=== PATIENT | female | born 1950 | race Caucasian/White ===

== ENCOUNTER 2016-10-22 08:49 | Outpatient (CLI) | payer MEDICARE ==
[2016-10-22 13:35] LABS: #Basophils 0.1 thou/uL (0.0-0.2); #Eosinphils 0.3 thou/uL (0.0-0.7); #Lymphocytes 1.8 thou/uL (1.20-3.40); #Monocytes 0.4 thou/uL (0.11-0.59); #Neutrophils 5.5 thou/uL (1.40-6.50); %Basophils 1.1 % (0.0-1.0); %Eosinophils 3.4 % (0.0-10.0); %Lymphocytes 22.5 % (21.0-51.0); %Monocytes 4.4 % (0.0-10.0); %Neutrophils 68.6 % (42.0-75.0); Hemoglobin 13.7 g/dL (12.0-16.0); Mean Corpuscular HGB CONC 32.3 g/dL (32.0-36.0); Mean Corpuscular Hemoglobin 32.9 pg (27.0-31.0); Mean Platelet Volume 6.1 fL (7.4-10.4); Platelet Count 298 thou/uL (130-400); RBC Distribution Width 13.2 % (11.5-14.5); Red Blood Cell (RBC) Count 4.18 mill/uL (4.20-5.40); White Blood Cell (WBC) Count 7.9 thou/uL (4.8-10.8)
[2016-10-22 13:41] LABS: ALT (SGPT) 17 U/L (0-55); AST (SGOT) 22 U/L (5-34); Albumin 4.2 g/dL (3.4-4.8); Alkaline Phosphatase 68 U/L (40-150); Anion Gap 16 mmol/L (10-20); BUN (Urea Nitrogen) 28 mg/dL (9.8-20.1); Bilirubin, Direct 0.2 mg/dL (0.1-0.3); Bilirubin, Total 0.6 mg/dL (0.2-1.2); Calc. Creatinine Clearance 0 mL/min (70-130); Calcium 9.2 mg/dL (7.8-10.44); Carbon Dioxide 25 mmol/L (23-31); Chloride 106 mmol/L (98-107); Cholesterol 219 mg/dL (< 200 Desired); Estimated GFR-MDRD 46; Glucose 73 mg/dL (80-115); HDL Cholesterol 55 mg/dL (>60 Neg Risk); LDL Cholesterol, Calculated 141 mg/dL; Potassium 4.7 mmol/L (3.5-5.1); Protein, Total 6.7 g/dL (5.8-8.1); Sodium 142 mmol/L (136-145); Triglycerides 113 mg/dL (Less than 150)
[2016-10-22 13:52] LABS: Hemoglobin A1c 5.2 % (4.0-6.0)
== END 2016-10-22 08:50 | disposition home or self-care (01) ==
LOC: NAVSJIPCSP 08:49
PROVIDERS: ATTEND Nurse Practitioner Family
DX: N95.1 Menopausal and female climacteric states (principal); K21.9 Gastro-esophageal reflux disease without esophagitis; I10 Essential (primary) hypertension; M19.90 Unspecified osteoarthritis, unspecified site; Z79.899 Other long term (current) drug therapy
CPT/HCPCS: 36415; 80048; 80061; 80076; 83036; 84443; 85025

== ENCOUNTER 2017-03-14 09:04 | Outpatient (CLI) | payer MEDICARE ==
[2017-03-14 12:01] LABS: #Basophils 0.1 thou/uL (0.0-0.2); #Eosinphils 0.3 thou/uL (0.0-0.7); #Lymphocytes 1.6 thou/uL (1.20-3.40); #Monocytes 0.4 thou/uL (0.11-0.59); #Neutrophils 5.1 thou/uL (1.40-6.50); %Basophils 1.5 % (0.0-1.0); %Eosinophils 4.4 % (0.0-10.0); %Lymphocytes 20.9 % (21.0-51.0); %Monocytes 5.2 % (0.0-10.0); %Neutrophils 68.1 % (42.0-75.0); Hemoglobin 14.1 g/dL (12.0-16.0); Mean Corpuscular HGB CONC 31.3 g/dL (32.0-36.0); Mean Corpuscular Hemoglobin 31.1 pg (27.0-31.0); Mean Corpuscular Volume 99.1 fl (81.0-99.0); Mean Platelet Volume 6.4 fL (7.4-10.4); Platelet Count 281 thou/uL (130-400); RBC Distribution Width 12.1 % (11.5-14.5); Red Blood Cell (RBC) Count 4.54 mill/uL (4.20-5.40); White Blood Cell (WBC) Count 7.5 thou/uL (4.8-10.8)
[2017-03-14 12:08] LABS: ALT (SGPT) 17 U/L (8-55); AST (SGOT) 23 U/L (5-34); Albumin 4.2 g/dL (3.4-4.8); Alkaline Phosphatase 71 U/L (40-150); Anion Gap 17 mmol/L (10-20); BUN (Urea Nitrogen) 33 mg/dL (9.8-20.1); Bilirubin, Direct 0.2 mg/dL (0.1-0.3); Bilirubin, Total 0.5 mg/dL (0.2-1.2); Calc. Creatinine Clearance 0 mL/min (70-130); Calcium 9.7 mg/dL (7.8-10.44); Carbon Dioxide 24 mmol/L (23-31); Cardiac Risk 4.3 (Less than 4.5); Chloride 106 mmol/L (98-107); Cholesterol 207 mg/dl (< 200 Desired); Estimated GFR-MDRD 44; Glucose 68 mg/dL (80-115); HDL Cholesterol 48 mg/dL (>60 Neg Risk); LDL Cholesterol, Calculated 133 mg/dL; Potassium 4.6 mmol/L (3.5-5.1); Protein, Total 6.8 g/dL (6.0-8.3); Sodium 142 mmol/L (136-145); Triglycerides 130 mg/dL (Less than 150)
== END 2017-03-14 09:05 | disposition home or self-care (01) ==
LOC: NAVSJIPCSP 09:04
PROVIDERS: ATTEND Family Medicine
DX: Z51.81 Encounter for therapeutic drug level monitoring (principal); Z79.899 Other long term (current) drug therapy
CPT/HCPCS: 36415; 80048; 80061; 80076; 84443; 85025

== ENCOUNTER 2018-08-11 23:56 | Emergency (ER) | payer MEDICARE ==
[2018-08-12] MEDS ORDERED: Ondansetron PF 4 MG/2 ML Vial ONE (00:27)
[2018-08-12] MEDS ORDERED: Morphine 4 MG/ML VIAL ONE (00:27)
[2018-08-12 00:31] LABS: #Basophils 0.1 thou/uL (0.0-0.2); #Eosinphils 0.1 thou/uL (0.0-0.7); #Lymphocytes 1.3 thou/uL (1.20-3.40); #Monocytes 0.5 thou/uL (0.11-0.59); #Neutrophils 9.7 thou/uL (1.40-6.50); %Basophils 0.8 % (0.0-1.0); %Eosinophils 0.7 % (0.0-10.0); %Lymphocytes 11.1 % (21.0-51.0); %Monocytes 4.2 % (0.0-10.0); %Neutrophils 83.3 % (42.0-75.0); Mean Corpuscular HGB CONC 32.2 g/dL (32.0-36.0); Mean Corpuscular Hemoglobin 32.4 pg (27.0-31.0); Mean Platelet Volume 6.3 fL (7.4-10.4); Platelet Count 243 thou/uL (130-400); RBC Distribution Width 11.7 % (11.5-14.5); White Blood Cell (WBC) Count 11.6 thou/uL (4.8-10.8)
[2018-08-12 00:42] LABS: Bilirubin Negative (Negative); Blood, Urine Large (Negative); Clarity Slightly Cloudy (Clear); Glucose, Urine (Dipstick) Negative (Negative); Leukocyte Trace (Negative); Nitrite Negative (Negative); Protein, Urine (Dipstick) 30 mg/dL (Neg-Trace); Urobilinogen 0.2 mg/dL (0.2-1.0)
[2018-08-12 00:43] LABS: Specific Gravity, Urine 1.028 (1.002-1.036)
[2018-08-12 00:44] LABS: RBC/HPF GREATER THAN 50-TNTC HPF (0-3)
[2018-08-12 00:44] LABS: ALT (SGPT) 11 U/L (8-55); AST (SGOT) 18 U/L (5-34); Albumin 4.1 g/dL (3.4-4.8); Alkaline Phosphatase 52 U/L (40-150); Anion Gap 15 mmol/L (10-20); BUN (Urea Nitrogen) 24 mg/dL (9.8-20.1); Bilirubin, Total 0.3 mg/dL (0.2-1.2); Calc. Creatinine Clearance 0 mL/min (70-130); Calcium 9.7 mg/dL (7.8-10.44); Carbon Dioxide 24 mmol/L (23-31); Chloride 107 mmol/L (98-107); Estimated GFR-MDRD 53; Globulin 2.5 g/dL (2.4-3.5); Glucose 124 mg/dL (80-115); Lipase 52 U/L (8-78); Potassium 4.3 mmol/L (3.5-5.1); Protein, Total 6.6 g/dL (6.0-8.3); Sodium 142 mmol/L (136-145)
[2018-08-12 00:45] LABS: Bacteria/HPF Rare-Few HPF (None Seen); Squamous Epithelial 0-3 HPF (0-3); WBC/HPF 0-3 HPF (0-3)
[2018-08-12] MEDS ORDERED: Sodium Chloride 0.9% 1,000 ML ONE (00:55)
[2018-08-12] MEDS ORDERED: Ketorolac Tromethamine 30 MG/ML VIAL ONE (00:55)
[2018-08-12] MEDS ORDERED: Tamsulosin HCl 0.4 MG CAP ONE (01:29)
--- NOTE | 2018-08-12 08:00 | CT ---
CT ABDOMEN AND PELVIS NONCONTRAST: INDICATIONS: Left abdominal pain. FINDINGS: Several calcifications are seen within the pelvis, one of which indicates a distal left ureteral calc ulus between 4 and 5 mm, with mild associated obstructive uropathy. No nephrolithiasis is seen. The re is limited evaluation of the solid abdominal organs, bowel, lymph nodes, and vasculature, on the b asis of the noncontrast technique. No acute abnormality of the visualized lung bases. Scattered oss eous degenerative change present. Scattered sclerotic foci are present, which may relate to bone isl ands. IMPRESSION: 1. A 4 to 5 mm distal left ureteral calculus with mild left obstructive uropathy. 2. Numerous additional calcifications of the pelvis are present, compatible with phleboliths. POS: NWK
== END 2018-08-12 01:50 | disposition home or self-care (01) ==
LOC: NAV ERS 23:56
DX: N13.2 Hydronephrosis with renal and ureteral calculous obstruction (principal); I10 Essential (primary) hypertension
CPT/HCPCS: 74176; 80053; 81003; 81015; 83605; 83690; 85025; 93005; 96361; 96374; 96375; J1885; J2270; J2405; J7050

== ENCOUNTER 2018-10-14 11:07 | Outpatient (CLI) | payer MEDICARE ==
--- NOTE | 2018-10-14 12:14 | RAD ---
THREE VIEWS LEFT WRIST: HISTORY: Left wrist pain. FINDINGS: Three views of the left wrist show no evidence of acute fracture or dislocation. There is a plate an d screws in the distal radius from prior fracture repair. No perihardware lucency is seen. IMPRESSION: No evidence of acute osseous abnormality. POS: [facility]LET
== END 2018-10-14 11:08 | disposition home or self-care (01) ==
LOC: NAV RAD 11:07
PROVIDERS: ATTEND Family Medicine
DX: S69.92XA Unspecified injury of left wrist, hand and finger(s), initial encounter (principal)

== ENCOUNTER 2019-08-17 10:04 | Outpatient (CLI) | payer MEDICARE ==
--- NOTE | 2019-08-17 12:15 | RAD ---
KUB: Date: 08/17/2019 INDICATION: Constipation, weight loss, and upset stomach. COMPARISON: Prior CT abdomen and pelvis dated 08/12/2018. FINDINGS: The lung bases are clear. The bowel gas pattern is unobstructed. There are numerous small phleboliths within the lower pelvis. No suspicious calcification is evident. There is scattered degenerative and osteoarthritic change. There is mild levoscoliosis of the lumbar spine. Small bone islands within th e upper sacrum are stable to the comparison CT evaluation. IMPRESSION: No acute abnormality. POS: CET
== END 2019-08-17 10:05 | disposition home or self-care (01) ==
LOC: NAV RAD 10:04
PROVIDERS: ATTEND Internal Medicine
DX: K30 Functional dyspepsia (principal); K59.00 Constipation, unspecified; R63.4 Abnormal weight loss
CPT/HCPCS: 74018

== ENCOUNTER 2022-06-24 20:34 | Emergency (ER) | payer MEDICARE, SELFPAY ==
[~2022-06-24 20:34] MED LIST: Iopamidol 370 76% 100 ML VIAL ONE
[2022-06-24 20:51] LABS: %Neutrophils 60.8 % (42.0-75.0); Hemoglobin 14.1 g/dL (12.0-16.0); Manual Diff?? NO; Mean Corpuscular HGB CONC 32.2 g/dL (32.0-36.0); Mean Corpuscular Hemoglobin 34.8 pg (27.0-31.0); Mean Platelet Volume 6.5 fL (7.4-10.4); Platelet Count 204 10x3/uL (130-400); RBC Distribution Width 12.2 % (11.5-14.5); Red Blood Cell (RBC) Count 4.04 mill/uL (4.20-5.40); White Blood Cell (WBC) Count 7.9 10x3/uL (4.8-10.8)
[2022-06-24 20:52] LABS: #Basophils 0.1 thou/uL (0.0-0.2); #Eosinphils 0.1 thou/uL (0.0-0.7); #Lymphocytes 2.4 thou/uL (1.20-3.40); #Monocytes 0.5 thou/uL (0.11-0.59); #Neutrophils 4.8 thou/uL (1.40-6.50); %Basophils 0.9 % (0.0-1.0); %Eosinophils 1.1 % (0.0-10.0); %Lymphocytes 30.6 % (21.0-51.0); %Monocytes 6.6 % (0.0-10.0)
[2022-06-24 21:03] LABS: INR-International Normal Ratio 0.9; PTT 26.9 sec (22.9-36.1); Prothrombin Time 12.2 sec (12.0-14.7)
[2022-06-24 21:08] LABS: ALT (SGPT) 10 U/L (8-55); AST (SGOT) 15 U/L (5-34); Albumin 4.2 g/dL (3.4-4.8); Alkaline Phosphatase 50 U/L (40-110); Anion Gap 13 mmol/L (10-20); BUN (Urea Nitrogen) 23 mg/dL (9.8-20.1); Bilirubin, Total 0.4 mg/dL (0.2-1.2); CK (CPK) 44 U/L (29-168); Calc. Creatinine Clearance 0 mL/min (70-130); Calcium 9.6 mg/dL (7.8-10.44); Carbon Dioxide 28 mmol/L (23-31); Chloride 105 mmol/L (98-107); Estimated GFR 70; Glucose 97 mg/dL (83-110); Potassium 3.8 mmol/L (3.5-5.1); Protein, Total 6.2 g/dL (5.8-8.1); Sodium 142 mmol/L (136-145)
[2022-06-24] MEDS ORDERED: diphenhydrAMINE 50 MG/ML VIAL ONE (21:10)
[2022-06-24] MEDS ORDERED: Prochlorperazine 10 MG/2 ML VIAL ONE (21:10)
[2022-06-24] MEDS ORDERED: Sodium Chloride 0.9% 1,000 ML ONE (21:10)
[2022-06-24] MEDS ORDERED: Dexamethasone 20 MG/5 ML VIAL ONE (21:10)
[2022-06-24] MEDS ORDERED: Ketorolac Tromethamine 30 MG/ML VIAL ONE (21:10)
== END 2022-06-25 00:20 | disposition left against medical advice (07) ==
LOC: NAV ERS 20:34
DX: G43.909 Migraine, unspecified, not intractable, without status migrainosus (principal); R47.1 Dysarthria and anarthria; I10 Essential (primary) hypertension
CPT/HCPCS: 36415; 36416; 70450; 70496; 70498; 82550; 84484; 85610; 85730; 93005; 96374; 96375; J0780; J1100; J1200; J1885; J7050; Q9967

== ENCOUNTER 2024-04-23 18:16 | Emergency (ER) | payer MEDICARE ==
[2024-04-23] MEDS ORDERED: Ondansetron PF 4 MG/2 ML Vial ONE (18:55)
[2024-04-23 19:00] LABS: #Basophils 0.1 thou/uL (0.0-0.2); #Eosinophils 0.1 thou/uL (0.0-0.7); #Lymphocytes 1.7 thou/uL (1.20-3.40); #Monocytes 0.4 thou/uL (0.11-0.59); #Neutrophils 5.7 thou/uL (1.40-6.50); %Basophils 0.7 % (0.0-1.0); %Eosinophils 0.7 % (0.0-10.0); %Lymphocytes 21.3 % (21.0-51.0); %Monocytes 5.3 % (0.0-10.0); %Neutrophils 72.1 % (42.0-75.0); Hematocrit 42.2 % (36.0-47.0); Hemoglobin 13.7 g/dL (12.0-16.0); Mean Corpuscular HGB CONC 32.5 g/dL (32.0-36.0); Mean Corpuscular Hemoglobin 33.8 pg (27.0-31.0); Mean Platelet Volume 5.8 fL (7.4-10.4); Platelet Count 260 10x3/uL (130-400); RBC Distribution Width 11.6 % (11.5-14.5); Red Blood Cell (RBC) Count 4.06 mill/uL (4.20-5.40); White Blood Cell (WBC) Count 7.9 10x3/uL (4.8-10.8)
[2024-04-23 19:12] LABS: ALT (SGPT) 16 U/L (8-55); AST (SGOT) 21 U/L (5-34); Albumin 3.9 g/dL (3.4-4.8); Alkaline Phosphatase 44 U/L (40-110); Anion Gap 15 mmol/L (10-20); BUN (Urea Nitrogen) 18 mg/dL (9.8-20.1); Bilirubin, Total 0.6 mg/dL (0.2-1.2); Calc. Creatinine Clearance 0 mL/min (70-130); Calcium 9.9 mg/dL (7.8-10.44); Carbon Dioxide 27 mmol/L (23-31); Chloride 103 mmol/L (98-107); Estimated GFR 50; Globulin 2.6 g/dL (2.4-3.5); Glucose 115 mg/dL (83-110); Magnesium 2.5 mg/dL (1.6-2.6); Protein, Total 6.5 g/dL (5.8-8.1); Sodium 141 mmol/L (136-145)
[2024-04-23] MEDS ORDERED: Sodium Chloride 0.9% 1,000 ML ONE (19:23)
[2024-04-23] MEDS ORDERED: Fleet Saline Enema 133 ML BOT ONE (20:45)
[2024-04-23] MEDS ORDERED: Sucralfate 1 GM TAB ONE (21:16)
== END 2024-04-23 21:51 | disposition home or self-care (01) ==
LOC: NAV ERS 18:16
DX: K30 Functional dyspepsia (principal); K59.00 Constipation, unspecified; R11.2 Nausea with vomiting, unspecified; I10 Essential (primary) hypertension
CPT/HCPCS: 74177; 80053; 83735; 85025; J2405; J7030; Q9967; 96361; 96374